=== PATIENT | female | born 1975 | race Caucasian/White ===

== ENCOUNTER 2017-01-05 18:19 | Emergency (ER) | payer OTHER ==
[2017-01-05 18:26] VITALS: RESP 17
[2017-01-05 19:50] LABS: % IMMATURE GRANULYOCYTES 0.2 % (0.0-1.1); ABSOLUTE IMMATURE GRANULOCYTES 0.01 10^3/uL (0.00-0.10); ADD DIFF? NO; ADD MORPH? NO; ADD SCAN? NO; ATYPICAL LYMPHOCYTE FLAG 50 (0-99); FRAGMENT RBC FLAG 0 (0-99); HEMATOCRIT 42.7 % (38.0-47.0); HEMOGLOBIN 14.7 g/dL (12.6-16.3); LEFT SHIFT FLG 0 (0-99); LIPEMIA HEMOLYSIS FLAG 90 (0-99); MEAN CELL HEMOGLOBIN 31.5 pg (27.9-34.1); MEAN CELL HEMOGLOBIN CONCENTR. 34.4 g/dL (32.4-36.7); MEAN CELL VOLUME 91.4 fL (81.5-99.8); MEAN PLATELET VOLUME 9.4 fL (8.7-11.7); PLATELET CLUMPS FLAG 0 (0-99); PLATELET COUNT 288 10^3/uL (150-400); RED BLOOD CELL COUNT 4.67 10^6/uL (4.18-5.33); RED CELL DISTRIBUTION WIDTH 12.5 % (11.5-15.2)
[2017-01-05 19:58] LABS: ANION GAP 14 mEq/L (8-16); CARBON DIOXIDE 23 mEq/l (22-31); CHLORIDE 103 mEq/L (97-110); CREATININE 0.7 mg/dL (0.6-1.0); GLOMERULAR FILTRATION RATE > 60; GLUCOSE 75 mg/dL (70-100); POTASSIUM 4.3 mEq/L (3.5-5.2); SODIUM 140 mEq/L (134-144)
--- NOTE | 2017-01-05 21:04 | EDPHY ---
H & P Stated Complaint: mottled l upper arm/sent to r/o blood clot Time Seen by Provider: 01/05/17 18:47 HPI/ROS: Chief complaint: Rule out blood clot History of present illness: This is a 41-year-old female who presents to the emergency department for a possible blood clot in her left arm. Patient developed a rash and swelling in her left armpit and upper arm over the last week. It has slowly improved. Her primary care doctor sent her to get imaging studies today, she reports the doctor she saw performed an ultrasound and was concerned she might have seen a blood clot in her arm and sent her here for further evaluation and care. At the same time there was concern for a mass in the axillary region and she does report she had an MRI with contrast today as well. She is scheduled to see Dr. Kalli Bone of surgery next week for further evaluation of this mass, she is not seen Dr. Bone as of yet. Patient denies other associated signs or symptoms including no fevers or chills, no cough, no trouble breathing, no chest pain. Review of systems: A 10 point review of systems was obtained and other than described above was negative - Personal History LMP (Females 10-55): 1-7 Days Ago Current Tetanus/Diphtheria Vaccine: Yes Tetanus Vaccine Date: < 10 years - Medical/Surgical History Hx Asthma: No Hx Chronic Respiratory Disease: No Hx Diabetes: No Hx Cardiac Disease: No Hx Renal Disease: No Hx Cirrhosis: No Hx Alcoholism: No Hx HIV/AIDS: No Hx Splenectomy or Spleen Trauma: No Other PMH: pmh- hypothyroid, ankylosing spondylosis, , afib, svt - Social History Smoking Status: Never smoked - Physical Exam Exam: General Appearance: Alert, nontoxic. Eyes: Pupils equal and round no pallor or injection. ENT, Mouth: Mucous membranes moist. Respiratory: There are no retractions, lungs are clear to auscultation. Cardiovascular: Regular rate and rhythm. Radial pulses 2+ bilaterally. Gastrointestinal: Abdomen is soft and nontender, no masses, bowel sounds normal. Neurological: Alert and oriented x4. Strength and sensation intact and symmetrical. Skin: Warm and dry, no rashes. Musculoskeletal: Extremities are symmetrical, full range of motion. Psychiatric: Patient is oriented X 3, there is no agitation. Constitutional: Initial Vital Signs Temperature (C) 37 C 01/05/17 18:23 Heart Rate 86 01/05/17 18:23 Respiratory Rate 17 01/05/17 18:23 Blood Pressure 110/90 H 01/05/17 18:23 O2 Sat (%) 96 01/05/17 18:23 O2 Delivery Mode Room Air Allergies/Adverse Reactions: clarithromycin [From Biaxin] Allergy (Verified 01/05/17 18:22) Vomiting Home Medications: Medication Instructions Recorded LEVOTHYROXINE SODIUM [Tirosint 25 mcg PO 06/06/12 25mcg] AMOXICILLIN 01/05/17 CeleBREX 01/05/17 Humira 01/05/17 Lexapro 01/05/17 Medical Decision Making - Diagnostics Imaging Results: Imaging Impressions Extremity Venous Study 01/05/17 19:06 Impression: 1. No deep venous thrombosis left arm. 2. Mildly prominent nonspecific left axillary adenopathy. Findings and recommendations discussed with Emergency Department physician, GARRISON Sierra, at 2050 hours, on January 05, 2017. Final report concurs with initial preliminary interpretation. Imaging: Discussed imaging studies w/ trashman Radiologist ED Course/Re-evaluation: Patient is discussed with my secondary supervising physician Dr. Gucci Abdi. Patient presents to the emergency department to rule out a blood clot in her left arm. Her left arm is neurovascularly intact. Ultrasound of the left arm is negative for DVT. She has no other complaints at this time. There was concern about a questionable mass initially seen on an outpatient ultrasound, there is lymphadenopathy noted on our ultrasound. She apparently did have an MRI today. Given she is nontoxic, vital signs are stable with no specific symptoms I do believe it is appropriate to have her follow up with Dr. Bone on an outpatient basis as already arranged by her doctor. Strict return precautions are given. Patient voiced understanding and agreement with plan. Differential Diagnosis: Included but not limited to thrombophlebitis, DVT, arterial occlusion, infectious pathology such as cellulitis, malignancy - Data Points Laboratory Results: Laboratory Results 01/05/17 19:38 01/05/17 19:38 01/05/17 01/05/17 01/05/17 19:38 19:38 19:38 WBC 5.09 10^3/uL 10^3/uL (3.80-9.50) RBC 4.67 10^6/uL 10^6/uL (4.18-5.33) Hgb 14.7 g/dL g/dL (12.6-16.3) Hct 42.7 % % (38.0-47.0) MCV 91.4 fL fL (81.5-99.8) MCH 31.5 pg pg (27.9-34.1) MCHC 34.4 g/dL g/dL (32.4-36.7) RDW 12.5 % % (11.5-15.2) Plt Count 288 10^3/uL 10^3/uL (150-400) MPV 9.4 fL fL (8.7-11.7) Neut % (Auto) 33.7 % L % (39.3-74.2) Lymph % (Auto) 55.6 % H % (15.0-45.0) Hudspeth % (Auto) 7.3 % % (4.5-13.0) Eos % (Auto) 2.0 % % (0.6-7.6) Baso % (Auto) 1.2 % % (0.3-1.7) Nucleat RBC Rel Count 0.0 % % (0.0-0.2) Absolute Neuts (auto) 1.72 10^3/uL 10^3/uL (1.70-6.50) Absolute Lymphs (auto) 2.83 10^3/uL 10^3/uL (1.00-3.00) Absolute Monos (auto) 0.37 10^3/uL 10^3/uL (0.30-0.80) Absolute Eos (auto) 0.10 10^3/uL 10^3/uL (0.03-0.40) Absolute Basos (auto) 0.06 10^3/uL 10^3/uL (0.02-0.10) Absolute Nucleated RBC 0.00 10^3/uL 10^3/uL (0-0.01) Immature Gran % 0.2 % % (0.0-1.1) Immature Gran # 0.01 10^3/uL 10^3/uL (0.00-0.10) Sodium 140 mEq/L mEq/L (134-144) Potassium 4.3 mEq/L mEq/L (3.5-5.2) Chloride 103 mEq/L mEq/L (97-110) Carbon Dioxide 23 mEq/l mEq/l (22-31) Anion Gap 14 mEq/L mEq/L (8-16) BUN 13 mg/dL mg/dL (7-23) Creatinine 0.7 mg/dL mg/dL (0.6-1.0) Estimated GFR > 60 Glucose 75 mg/dL mg/dL (70-100) Calcium 10.0 mg/dL mg/dL (8.5-10.4) Beta HCG, Qual NEGATIVE Departure - Departure Disposition: Home, Routine, Self-Care Clinical Impression: Arm pain Qualifiers: Laterality: left Qualified Code(s): M79.602 - Pain in left arm Condition: Good Instructions: Arm Pain (ED) Additional Instructions: Follow-up with your primary care doctor for continued evaluation and care If symptoms worsen or new symptoms develop return to the emergency room for recheck Referrals: BRITTNEY SANDOVAL [Primary Care Provider] - As per Instructions
[2017-01-05 21:45] VITALS: BP 108/78; PULSE 72; TEMP 98.4; O2SAT 98
== END 2017-01-05 21:45 | disposition home or self-care (01) ==
DX: M79.602 Pain in left arm (principal)

== ENCOUNTER 2017-01-13 08:58 | Day surgery (SDC) | payer OTHER ==
[~2017-01-13 08:58] MED LIST: BUPIVACAINE 0.5% 30 ML SDV ONE; MIDAZOLAM 2 MG/2 ML VIAL IVP ONE
[2017-01-13] MEDS ORDERED: PROPOFOL 200 MG/20 ML VIAL ONE (09:01)
[2017-01-13] MEDS ORDERED: fentaNYL 100 MCG/2 ML INJ ONE ×2 (09:01→11:39)
[2017-01-13] MEDS ORDERED: ROCURONIUM 50 MG/5 ML VIAL ONE (09:01)
[2017-01-13] MEDS ORDERED: ceFAZolin 2 GM/DEXTROSE 100 ML IV ONE (09:24)
[2017-01-13] MEDS ORDERED: LR 1,000 ML IV SCH (09:24)
--- NOTE | 2017-01-13 09:35 | PDHPUP ---
History & Physical Update H&P update statement: This history and physical update is based on an assessment of the patient which was completed after admission or registration (within 24 hours), but prior to the surgery/procedure. H&P update: H&P reviewed & patient examined, no change in patient's condition since H&P completed
[2017-01-13] MEDS ORDERED: LIDOCAINE 1% 2 ML INJ ONE (09:39)
--- NOTE | 2017-01-13 10:05 | PDANEPAE ---
ANE History of Present Illness Otherwise healthy 41 year old female with no other medical issues. She just completed a 10 day course of antibiotics for strep. Currently has recovered nicely. ANE Past Medical History - Pulmonary History Hx Oxygen in Use at Home: No - Endocrine History Hx Diabetes: No ANE Review of Systems - Exercise capacity METS (RN): 6 METS ANE Patient History - Allergies Allergies/Adverse Reactions: clarithromycin [From Biaxin] Allergy (Verified 01/05/17 18:22) Vomiting - Home Medications Home Medications: LEVOTHYROXINE SODIUM [Tirosint 25mcg] 25 mcg PO 06/06/12 [Last Taken 01/13/17 07 :00] AMOXICILLIN 01/05/17 [Last Taken 01/12/17 21:00] CeleBREX 01/05/17 [Last Taken 01/12/17 21:00] Humira 01/05/17 [Last Taken 3 Weeks Ago] Lexapro 01/05/17 [Last Taken 01/12/17 21:00] - NPO status NPO Since - Liquids (Date): 01/13/17 NPO Since - Liquids (Time): 07:30 NPO Since - Solids (Date): 01/12/17 NPO Since - Solids (Time): 20:00 - Smoking Hx Smoking Status: Never smoked ANE Labs/Vital Signs - Vital Signs Blood Pressure: 98/74 Heart Rate: 78 Respiratory Rate: 14 O2 Sat (%): 98 Height: 167.64 cm Weight: 61.235 kg ANE Physical Exam - Airway Mallampati Score: Class 1 Mouth exam: normal dental/mouth exam - Pulmonary Pulmonary: no respiratory distress - Cardiovascular Cardiovascular: regular rate and rhythym - ASA Status ASA Status: II ANE Anesthesia Plan Anesthesia Plan: general endotracheal anesthesia Urgent/Emergent Case: Angellatod harris completed preop but documented later for safe timely pt care
[2017-01-13] MEDS ORDERED: morphINE PF 5 MG/10 ML INJ ONE (10:11)
[2017-01-13] MEDS ORDERED: HYDROmorphONE/DILAUDID 1 MG/ML SYR IVP PRN (10:42)
[2017-01-13] MEDS ORDERED: DEXAMETHASONE 4 MG/ML VIAL IVP PRN (10:42)
[2017-01-13] MEDS ORDERED: NALOXONE HCL 0.4 MG/ML INJ IVP PRN (10:42)
[2017-01-13] MEDS ORDERED: OXYCODONE/APAP 5/325 TAB PO PRN (10:42)
[2017-01-13] MEDS ORDERED: DEXAMETHASONE 4 MG/ML VIAL ONE (10:46)
[2017-01-13] MEDS ORDERED: ONDANSETRON 4 MG/2 ML VIAL ONE (10:46)
--- NOTE | 2017-01-13 11:10 | POSTOPPROG ---
Post Op Note Date of Operation: 01/13/17 Surgeon: Kalli Bone Stick Feeder: satish Anesthesiologist: landy Anesthesia: GET(General Endotracheal) Pre-op Diagnosis: L axillary lymphadenopathy Post-op Diagnosis: same Indication: 41 yo with ankylosis spondilitis with new axillary lymphadenopathy Procedure: L axillary lymph node excision of multiple nodes Inf/Abcess present in the surg proc area at time of surgery?: No Depth: Superfical (Skin SQ) EBL: Minimal Specimen(s): specimen for micro and path
--- NOTE | 2017-01-13 11:28 | POSTANESTH ---
Post Anesthetic Evaluation Respiratory Status: Normal, Stable Level of Consciousness/Mental Status: Can Participate in Eval Pain Control: Adequate, Prn Tx Ordered Nausea/Vomiting Control: Adequate, Prn Tx Ordered Complications Possibly Related to Anesthesia: None Noted
[2017-01-13] MEDS: fentaNYL 100 MCG/2 ML INJ IVP PRN ×3 (11:41→12:05)
--- NOTE | 2017-01-13 11:46 | GOP ---
[f rep st] OPERATIVE REPORT DATE OF OPERATION: 01/13/2017 SURGEON: Kalli Bone MD ASSEMBLY ADJUSTER: MIRNA Martinez. ANESTHESIA: General. ANESTHESIOLOGIST: Mckenzie Hou MD. PREOPERATIVE DIAGNOSIS: Left axillary lymphadenopathy. POSTOPERATIVE DIAGNOSIS: Left axillary lymphadenopathy. PROCEDURE PERFORMED: Left axillary lymph node excision. FINDINGS: tissue adhered to pectoralis SPECIMENS: Lymph nodes for microbiology and pathology. ESTIMATED BLOOD LOSS: 10 cc. INDICATIONS: The patient is a 41-year-old woman with ankylosing spondylitis. She noticed discomfort in her axilla. She had an MRI, which showed matted lymph nodes against the pectoralis. She then developed strep after. She did not have contact with either wild animals or pets. She is on Humira for her chronic immunosuppression. DESCRIPTION OF PROCEDURE: The patient was brought into the operating room, placed supine on the table, and general anesthesia was administered. Her left axilla was prepped and draped in the usual sterile fashion. I infiltrated all sites with 0.5% Marcaine prior to making incisions. I made an incision beneath the hair-bearing portion of her left axilla. I dissected down until I encountered the axillary space. There was 1 superficial lymph node, which I was able to excise. I split this in half for microbiology, as well as for pathology. I continued to perform dissection, and her pectoralis muscle was very well adhered to some of the lymphatic tissue. I performed careful dissection through this inflamed tissue, and I ultimately found another 2 small lymph nodes. These were split, again for microbiology and pathology. There were no other palpable nodes in the axilla. Hemostasis was achieved in the wound. I closed the wound with 3-0 Vicryl, followed by 4-0 Monocryl. Mastisol , Steri-Strips, and a sterile dressing were applied. She was awakened in the operating room, extubated, transferred to PACU in stable condition. /[id number]/MODL MTDD
[2017-01-13] MEDS ORDERED: OXYCODONE/APAP 5/325 TAB ONE (12:52)
[2017-01-13 13:19] VITALS: BP 104/71; PULSE 83; RESP 18; TEMP 97.7
[2017-01-13 13:28] VITALS: O2SAT 94
[2017-01-16 12:19] LABS: FINAL DIAGNOSIS See Comments; MICROSCOPIC DESCRIPTION See Comments
== END 2017-01-13 13:38 | disposition home or self-care (01) ==
LOC: FSGY 08:58
PROVIDERS: ATTEND Surgery
PROC: 07B60ZZ Excision of Left Axillary Lymphatic, Open Approach (ICD-10-PCS; principal; 2017-01-13 10:30)
DX: R59.0 Localized enlarged lymph nodes (principal); M45.9 Ankylosing spondylitis of unspecified sites in spine; E03.9 Hypothyroidism, unspecified; Z80.3 Family history of malignant neoplasm of breast; Z80.41 Family history of malignant neoplasm of ovary
CPT/HCPCS: 88184-90; 88185-91; J0690; J1100; J2250; J2274; J2405; J2704; J3010

== ENCOUNTER → 2017-06-15 | Outpatient (CLI) | payer OTHER | LOC: FIMAGING 14:05 | PROVIDERS: ATTEND Internal Medicine Rheumatology | DX: R59.9 Enlarged lymph nodes, unspecified (principal) ==